=== PATIENT | male | born 1950 | race Two or more races ===

== ENCOUNTER 2021-08-17 01:23 | Inpatient (IN) | payer MEDICARE, OTHER ==
[~2021-08-17] VITALS: Ht 167.6 cm; Wt 56.7 kg
[2021-08-17] MEDS ORDERED: MAGNESIUM HYDROXIDE 30 ML UDC PO PRN (03:30)
[2021-08-17] MEDS ORDERED: ACETAMINOPHEN 325 MG TABLET PO PRN (03:30)
[2021-08-17] MEDS ORDERED: ZOLPIDEM TARTRATE 5 MG TABLET PO PRN (03:30)
[2021-08-17] MEDS ORDERED: BLOOD SUGAR DIAGNOSTIC 1 EACH STRIP IN ONE (03:30)
[2021-08-17] MEDS ORDERED: LORAZEPAM 0.5 MG TABLET PO PRN (03:30)
[2021-08-17] MEDS ORDERED: MAG HYDROX/AL HYDROX/SIMETH 30 ML UDC PO PRN (03:30)
[2021-08-17] MEDS ORDERED: APIX5TAB PO (04:36)
[2021-08-17] MEDS ORDERED: DONE10TA44 PO (04:36)
[2021-08-17] MEDS ORDERED: HYDR-4075 PO (04:36)
[2021-08-17] MEDS ORDERED: SERT50TA PO (04:36)
[2021-08-17] MEDS ORDERED: CARV25TA2 PO (04:36)
[2021-08-17] MEDS ORDERED: DIVA500T54 PO (04:36)
[2021-08-17] MEDS ORDERED: LORA-259 PO (04:36)
[2021-08-17] MEDS ORDERED: ACET-73 PO (04:36)
--- NOTE | 2021-08-17 04:52 | NUR ---
GPS CHIEF SCIENCE OFFICER NOTES: RECEIVED A 70 Y/O MALE FROM [facility]. PATIENT ARRIVED THIS UNIT ON A STRETCHER WITH 2 EMT ESCORTS. PATIENT IS ON A 5150 HOLD PLACED 08/16/21 @ 1345. PER HOLD, PATIENT WAS COMBATIVE AND PHYSICALLY AGGRESSIVE TOWARDS HIS . PATIENT HAS HX OF DECLINING DEMENTIA. UPON FACE TO FACE EVALUATION, PATIENT IS ALERT, COMBATIVE, AGGRESSIVE, CONFUSED, DISORIENTED, AND DISORGANIZED . PATIENT REFUSED SKIN ASSESSMENT, REFUSED ACCU CHEK AND MRSA. PATIENT IS UNABLE TO SIGN ALL ADMISSION PAPERWORK. PATIENT HAS NO S/S OF DISTRESS. PATIENT BREATHING IS EVEN AND UNLABORED WITH EQUAL RISE AND FALL OF THE CHEST, ON ROOM AIR. PATIENT IS UNDER THE PSYCHIATRIC CARE OF DR. SHORT AND MEDICAL CARE OF DAVI. PATIENT BELONGINGS WERE INVENTORIED AND CHECKED FOR CONTRABAND. PATIENT BED IS IN LOWEST POSITION AND LOCKED WITH SIDE RAILS UP X 2 FOR SAFETY. BED ALARM ON FOR SAFETY. WILL CONTINUE TO MONITOR PATIENT Q15 FOR MOOD, SAFETY AND BEHAVIOR.
[2021-08-17 06:43] VITALS: BP 96/44
--- NOTE | 2021-08-17 07:26 | NUR ---
GPS RN NOTE RECEIVED PATIENT ON BED ASLEEP WITH RR OF 19. PATIENT EASILY AROUSABLE ADN SMILLED WHEN GREETED. PATIENT KEPT ON BED ON WITH COMFORT MEASURES AND SAFETY MEASURES IN PLACE INCLUDING SIDERALIS AND BED ALARM. WILL CONTINUE TO MONITOR PATIENT.
[2021-08-17 08:00] VITALS: BP 148/82
--- NOTE | 2021-08-17 08:11 | NUR ---
GPS RN NOTE PATIENT REFUSED BLOOD DRAW ORDERED. DID NOT ANSWER WHY. FAGOT HEATER HELPER WILL TRY AGAIN LATER. WILL CONTINUE TO MONITOR PATIENT.
[2021-08-17] MEDS: ACETAMINOPHEN ES 500 MG TABLET PO SCH ×2 (09:00→17:00)
[2021-08-17] MEDS: CARVEDILOL 12.5 MG TABLET PO SCH ×2 (09:00→17:00)
[2021-08-17] MEDS: hydrALAZINE HCL 10 MG TABLET PO SCH (09:00)
--- NOTE | 2021-08-17 09:25 | NUR ---
GPS NOTE PATIENT REFUSED TO TAKE MEDICATIONS. HE SAID THAT HE DIDN'T NEED TO FOR 35 YEARS SO WHY TAKE NOW. PATIENT RE-ORIENTED BUT STILL REFUSED MEDICATIONS. WILL CONTINUE TO MONITOR PATIENT.
[2021-08-17] MEDS: DIVALPROEX SODIUM 125 MG CAP.SPRINK PO SCH ×2 (10:00→20:57)
--- NOTE | 2021-08-17 10:37 | NUR ---
Treatment Plan: Patient very confused and unable to sign treatment plan.
--- NOTE | 2021-08-17 10:41 | NUR ---
LEBRON Family Contact: LEBRON left a voicemail to patient's Mary ([phone]). SW left a detailed voicemail.
--- NOTE | 2021-08-17 10:53 | NUR ---
LEBRON Family Contact: LEBRON spoke with patient's Mary ([phone]) to gather collateral. SW discussed treatment and discharge plan. would want pt back home and stated that she will take care of pt. was yelling at this telegraphic typewriter installer and accusing this telegraphic typewriter installer that this telegraphic typewriter installer brought the pt to the hospital. SW calmed her down and explained the process. stated that she would want pt at a different facility closer to home. SW explained that she would need to find an accepting hospital and psychiatrist who will take pt. Dr. Hilliard also explained this to . expressed that she is the DPOA and SW asked to send documents. SW educated on pt's behavior and 5149/5249 process.
--- NOTE | 2021-08-17 10:53 | NUR ---
LEBRON Initial Discharge Plan: Patient lives at home located at [address] [place] [address]; ([phone]). LEBRON contacted patient's Mary ([phone]) to gather collateral, she stated she would want pt back home upon discharge. LEBRON will work with the MD and treatment team to coordinate appropriate discharge.
--- NOTE | 2021-08-17 14:30 | NUR ---
LEBRON Coordination: SW received a call from [facility] Coordinator ([phone]) who stated that pt needs to be transferred to [facility]. SW stated pt would have to have an accepting bed and psychiatrist, she stated to contact [facility] ([phone]). LEBRON spoke with [facility] who stated at this time they do not have an accepting bed for the pt.
--- NOTE | 2021-08-17 15:30 | NUR ---
GPS NOTE PATIENT STILL REFUSED BLOOD DRAW, BACK GRINDER WILL TRY AGAIN LATER.
[2021-08-17 16:00] VITALS: BP 121/85
[2021-08-17] MEDS: MEMANTINE HCL 5 MG TABLET PO SCH (17:00)
--- NOTE | 2021-08-17 17:43 | NUR ---
GPS NOTE PATIENT STILL REFUSED MEDICATION. PATIENT HEALTH TEACHING DONE. STARTING TO GET AGITATED.
[2021-08-17] MEDS ORDERED: OLANZAPINE 10 MG VIAL IM ONE (18:10)
--- NOTE | 2021-08-17 18:23 | NUR ---
PATIENT AGITATED AND ASSAULTIVE , CALLED WITH NEW ORDER ZYPREXA 5MG AND GIVEN BY PRIMARY NURSE ,WILL CONTINUE TO MONITOR .
--- NOTE | 2021-08-17 18:29 | NUR ---
GPS NOTE PATIENT WAS VERY AGGRESSIVE, COMBATIVE AND WAS THROWING FOOD TRAYS AND FOOD TO OTHERS. TRIED TO HIT NURSES AND OTHER PATIENT. DR. SHORT NOTIFIED WITH ORDER TO GIVE ZYPREXA 5MG IM X 1 DOSE. CALLED SECURITY FOR ASSISTANCE. MEDICATION GIVEN IM ORDERED. PROVIDED WITH CALM AND QUIET ENVIRONMENT. WILL CONTINUE TO MONITOR PATIENT.
--- NOTE | 2021-08-17 18:32 | NUR ---
GPS NOTE MEDICATION MIXED WITH PUDDING THROWN BY PATIENT TO ANOTHER NURSE.
[2021-08-17] MEDS: APIXABAN 5 MG TABLET PO SCH (19:00)
--- NOTE | 2021-08-17 19:00 | NUR ---
GPS RN NOTE PATIENT ON SIMA CHAIR. PROVIDED WITH CALM AND QUIET ENVIRONMENT. PATIENT NOTED TO BE DOZING INTERMITTENTLY BUT SEEMED TO BE FIGHTING IT OFF. WILL ENDORSE TO NEXT SHIFT FOR CONTINUITY OF CARE.
--- NOTE | 2021-08-17 19:00 | NUR ---
GPS RN NOTE RECEIVED PATIENT AWAKE AND IN JAVIER CHAIR, SITTER PRESENT, NO S/S OR COMPLAINTS OF PAIN AT THIS TIME. PATIENT IS IS SHOWING AGGRESSION WHEN APPROACHED BY STAFF AND TO OTHER PATIENTS. BREATHING IS EVEN AND UNLABORED WITH EQUAL RISE AND FALL OF THE CHEST. PATIENT IS AO X 1, ON ROOM AIR WITH SPO2 97%. PER AM SHIFT RN DEANDRE, PATIENT HAS BEEN REFUSING MEDICATIONS COMPLIANT WITH MEDICATION, RESPONDING TO INTERNAL STIMULI, AND COOPERATIVE. PATIENT DENIES SUICIDAL AND HOMICIDAL IDEATIONS AT THIS TIME. SAFETY PRECAUTIONS IN PLACE. WILL CONTINUE TO MONITOR Q15 MIN WITH THE HELP OF SITTER TO MAINTAIN SAFETY.
[2021-08-17 20:00] VITALS: BP 121/85
[2021-08-17] MEDS ORDERED: DONEPEZIL 5 MG TABLET PO SCH (22:00)
[2021-08-17] MEDS ORDERED: QUETIAPINE FUMARATE 100 MG TABLET PO SCH (22:00)
[2021-08-18 08:18] LABS: CALCIUM, SERUM 9.4 mg/dL (8.5-10.1); CREATININE 0.8 mg/dL (0.6-1.3); POTASSIUM 5.4 mmol/L (3.5-5.1); TOTAL PROTEIN, SERUM 7.8 g/dL (6.4-8.2)
[2021-08-18 08:20] LABS: CHOLESTEROL 136 mg/dL (<200); HDL CHOLESTEROL 46 mg/dL (40-60); LDL 81 mg/dL (0-99); TRIGLYCERIDES 68 mg/dL (30-150)
[2021-08-18] MEDS: DIVALPROEX SODIUM 125 MG CAP.SPRINK PO SCH (08:28)
[2021-08-18] MEDS: hydrALAZINE HCL 10 MG TABLET PO SCH (08:28)
[2021-08-18] MEDS: CARVEDILOL 12.5 MG TABLET PO SCH (08:28)
[2021-08-18] MEDS: APIXABAN 5 MG TABLET PO SCH (08:29)
[2021-08-18] MEDS: ACETAMINOPHEN ES 500 MG TABLET PO SCH (08:29)
[2021-08-18] MEDS: MEMANTINE HCL 5 MG TABLET PO SCH (08:29)
--- NOTE | 2021-08-18 08:55 | NUR ---
SW Family Contact: SW left a voicemail to patient's Mary ([phone]). Second attempt that this SW left a voicemail.
--- NOTE | 2021-08-18 08:56 | NUR ---
LEBRON Family Contact: LEBRON spoke with patient's Mary ([phone]) and stated that [facility] does not have a bed available at this time. Addendum: 08/18/21 at 0924 by LEBRON CHEN was verbally abusive towards this sheet writer.
--- NOTE | 2021-08-18 09:01 | NUR ---
LEBRON Coordination: SW received a call from [facility] Coordinator ([phone]) who stated they are still working on finding a bed for pt. LEBRON [facility] intake department ([phone]) who stated that they currently do not have a bed available at [facility].
--- NOTE | 2021-08-18 09:24 | NUR ---
LEBRON Coordination of Care: SW spoke with patient's doctor office and spoke with case therapist Ana Lilia ([phone]) who stated that at this time they do not have a bed available and are hoping to have a bed available.
[2021-08-18] MEDS ORDERED: IV NS 0.9% 1,000 ML IV ONE (11:00)
--- NOTE | 2021-08-18 11:10 | NUR ---
IV NOT STARTED DUE TO PT'S COMBATIVENESS AND AGGRESSIVENESS. WILL INFORM PCP.
[2021-08-18 11:35] VITALS: BP 130/78
--- NOTE | 2021-08-18 12:40 | NUR ---
Dr. Hilliard gave an order to discharge from [facility] and to be transferred on 5150 hold to [facility].
--- NOTE | 2021-08-18 12:48 | NUR ---
[facility]: SW spoke with [facility] department ([phone]) who stated that the pt is accepted and that the team will contact this SW to coordinate the transfer.
--- NOTE | 2021-08-18 12:49 | NUR ---
LEBRON Family Contact: SW contacted patient's Mary ([phone]) and left a voicemail that pt is accepted and that he will transfer to [facility].
--- NOTE | 2021-08-18 13:00 | NUR ---
Received a call from Jossy from [facility] and interviewed the inspector automatic typewriter about the pt. They were aware that pt. is with pending IV due to pt. is combative and still they are accepting pt.
--- NOTE | 2021-08-18 13:12 | NUR ---
SW Discharge Note: Patient will be transferred to [facility] EC Unit located at [address], [place] [address]; ([phone]) on a 5150 hold. [place] ([phone]) transportation will be provided by [facility] at 3PM. Brendon (Intake Department) from [facility] ([phone]) accepted pt. Patients Mary ([phone]) is notified of patients transfer. Patients will be in room 52A. Patient has accepting (Psychiatrist) Dr. Fuller and (Client Specialist) Dr. Adams at [facility]. Patient is notified of transfer and is aware. Denies suicidal or homicidal ideation. Denies visual/auditory hallucinations. Presents with euthymic mood and congruent affect.
--- NOTE | 2021-08-18 13:16 | NUR ---
LEBRON Coordination of Care: LEBRON contacted patient's doctor office at ([phone]) and notified of patient's transfer. Spoke with Ana Lilia ([phone]) caser up.
--- NOTE | 2021-08-18 13:16 | NUR ---
LEBRON Family Contact: SW contacted patient's Mary ([phone]) and left a voicemail that pt will be transferred at 3PM to [facility].
--- NOTE | 2021-08-18 14:07 | NUR ---
Eric Lomax made aware that pt. will be transferred to [facility] and to continue on hold. Made aware that IV not started yet due to pt. is combative and made aware that [facility] is aware of the pending IV and they are accepting the pt. Per Eric Lomax pt. is clear to go.
--- NOTE | 2021-08-18 15:45 | NUR ---
Patient transferred to [facility] EC Unit located at [address], [place] [address]; ([phone]) on a 5150 hold. Transportation provided by [facility]. Brendon (Intake Department) from [facility] ([phone]) accepted pt. Patients Mary ([phone]) is notified of patients transfer. Patients will be in room 52A. Patient has accepting (Psychiatrist) Dr. Fuller and (Adult Probation Officer) Dr. Adams at [facility]. Patient is notified of transfer and is aware. Denies suicidal or homicidal ideation. Denies visual/auditory hallucinations. Med list printed and placed in folder along with Exit Care and signed discharge forms. All valuables and belongings returned. Report given to Idania DEE. Pt left unit @ 3590.
== END 2021-08-18 15:45 | DRG 885 ==
LOC: GPS 02:32
PROVIDERS: ADMIT Psychiatry & Neurology Psychiatry; ATTEND Nurse Practitioner Acute Care
DX: F29 Unspecified psychosis not due to a substance or known physiological condition (principal); N17.0 Acute kidney failure with tubular necrosis; F03.91 Unspecified dementia, unspecified severity, with behavioral disturbance; D68.59 Other primary thrombophilia; F41.9 Anxiety disorder, unspecified; I48.91 Unspecified atrial fibrillation; I25.10 Atherosclerotic heart disease of native coronary artery without angina pectoris; I10 Essential (primary) hypertension; E87.5 Hyperkalemia
CPT/HCPCS: 36415; 80053-TC; 80061-TC; 97116-TC; 97530-TC; J3490; J7030